=== PATIENT | male | born 2000 | race American Indian/Alaskan Native ===

== ENCOUNTER 2022-07-31 09:14 | Emergency (ER) | payer SELFPAY ==
[2022-07-31] MEDS ORDERED: AZITHROMYCIN 1 GM ORAL PWDR PACKET PO ONE (13:44)
[2022-07-31] MEDS ORDERED: LIDOCAINE-MPF (1%) 10 MG/1 ML VIAL 5 ML INFILTRATI ONE (13:44)
--- NOTE | 2022-07-31 13:50 | Emergency Department Report ---
ED General Adult HPI - General Chief complaint: Urogenital-Male Stated complaint: PAIN IN SHAFT/BUMP ON BUTT Time Seen by Provider: 07/31/22 12:37 Source: patient Mode of arrival: Ambulatory Limitations: No Limitations - History of Present Illness Initial comments: 21-year-old male with no significant past medical history reports to the ER with lesion to his penile shaft that he noticed for couple of days with pain. Patient also reports having a left buttocks small abscess lysis lesion that he is noticed for about the last month and a half that he has popped and has reappeared. Patient reports noted acute signs and symptoms. Reports he is nonmonogamous and has had unprotected sex recently as well as over the last few weeks. Severity scale (0 -10): 2 - Related Data Previous Rx's Medication Instructions Recorded Last Taken Type Doxycycline Hyclate 100 mg PO BID 7 Days #14 cap 07/31/22 Unknown Rx Sulfamethoxazole/Trimethoprim 1 each PO BID 7 Days #14 tab 07/31/22 Unknown Rx [Bactrim DS TAB] Valacyclovir HCl [Valacyclovir] 1,000 mg PO Q12HR 7 Days #14 tab 07/31/22 Unknown Rx Allergies Allergy/AdvReac Type Severity Reaction Status Date / Time No Known Allergies Allergy Verified 07/31/22 09:25 ED Review of Systems ROS: Stated complaint: PAIN IN SHAFT/BUMP ON BUTT Other details as noted in HPI Comment: All other systems reviewed and negative Skin: lesions (Penis shaft), other (Small abscess to left buttocks) ED Past Medical Hx - Past Medical History Previous Medical History?: No - Surgical History Past Surgical History?: No - Medications Home Medications: Home Medications Medication Instructions Recorded Confirmed Last Taken Type Doxycycline Hyclate 100 mg PO BID 7 Days #14 cap 07/31/22 Unknown Rx Sulfamethoxazole/Trimethoprim 1 each PO BID 7 Days #14 tab 07/31/22 Unknown Rx [Bactrim DS TAB] Valacyclovir HCl [Valacyclovir] 1,000 mg PO Q12HR 7 Days #14 tab 07/31/22 Unknown Rx ED Physical Exam - General Limitations: No Limitations General appearance: alert, in no apparent distress - Head Head exam: Present: atraumatic, normocephalic - Eye Eye exam: Present: normal appearance - ENT ENT exam: Present: mucous membranes moist - Neck Neck exam: Present: normal inspection - Respiratory Respiratory exam: Present: normal lung sounds bilaterally. Absent: respiratory distress - Cardiovascular Cardiovascular Exam: Present: regular rate, normal rhythm. Absent: systolic murmur, diastolic murmur, rubs, gallop - GI/Abdominal GI/Abdominal exam: Present: soft, normal bowel sounds - Rectal Rectal exam: Present: deferred - exam: Present: other (Small lesion on anterior aspect of penile shaft herpes- like lesion) - Extremities Exam Extremities exam: Present: normal inspection - Back Exam Back exam: Present: normal inspection - Neurological Exam Neurological exam: Present: alert, oriented X3 - Psychiatric Psychiatric exam: Present: normal affect, normal mood - Skin Skin exam: Present: warm, dry, intact, normal color, other (Small abscess to left buttocks less than 0.5 cm in length with tenderness noted. Small erythema.). Absent: rash ED Course Vital Signs 07/31/22 07/31/22 09:23 14:38 Temperature 97.1 F L Pulse Rate 85 82 Respiratory 16 18 Rate Blood Pressure 114/85 112/80 [Right] O2 Sat by Pulse 97 97 Oximetry ED Medical Decision Making - Medical Decision Making 21-year-old male with no significant past medical history reports to the ER with lesion to his penile shaft that he noticed for couple of days with pain. Patient also reports having a left buttocks small abscess lysis lesion that he is noticed for about the last month and a half that he has popped and has reappeared. Patient reports noted acute signs and symptoms. Reports he is nonmonogamous and has had unprotected sex recently as well as over the last few weeks. Small lesion noted to proximal end of penile shaft anterior side. Small abscess noted to left buttocks less than 0.5 cm in diameter. No other acute signs and symptoms noted. No imaging needed at this time no labs needed time. 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 Patient to be started on Valtrex 1000 mg twice daily 7 days. Patient also received prophylaxis abdominal chlamydia as patient is sexually active with multiple people in the last 2 to 3 weeks with no protection. Patient denies any acute discharge or dysuria at this time. Patient agrees with plan of care verbalized understanding. Patient received IM Rocephin 5 mg and 1 g azithromycin p.o. here in ER and sent home with doxycycline 100 mg twice daily for 7 days. Patient is safe for discharge home. Patient informed to follow primary care provider as well as his local health department for further evaluation and a complete STD screening as needed. Patient stable for discharge Vital Signs 07/31/22 07/31/22 09:23 14:38 Temperature 97.1 F L Pulse Rate 85 82 Respiratory 16 18 Rate Blood Pressure 114/85 112/80 [Right] O2 Sat by Pulse 97 97 Oximetry Critical care attestation.: If time is entered above; I have spent that time in minutes in the direct care of this critically ill patient, excluding procedure time. ED Disposition Clinical Impression: Penile pain, Sore of penis, Left buttock abscess, Possible exposure to STD Disposition: 01 HOME / SELF CARE / HOMELESS Is pt being admited?: No Condition: Stable Instructions: Skin Abscess, Safe Sex Prescriptions: Sulfamethoxazole/Trimethoprim [Bactrim DS TAB] 1 each PO BID 7 Days #14 tab Doxycycline Hyclate 100 mg PO BID 7 Days #14 cap Valacyclovir HCl [Valacyclovir] 1,000 mg PO Q12HR 7 Days #14 tab Referrals: PRIMARY CARE [Primary Care Provider] - 3-5 Days Forms: Work/School Release Form(ED)
[2022-07-31 14:39] VITALS: BP 112/80
== END 2022-07-31 14:40 | disposition home or self-care (01) ==
LOC: ED 09:14
DX: N48.89 Other specified disorders of penis (principal); L02.31 Cutaneous abscess of buttock; Z20.2 Contact with and (suspected) exposure to infections with a predominantly sexual mode of transmission
CPT/HCPCS: 96372; 99282; J0696; J3490